=== PATIENT | female | born 1950 | race Caucasian/White ===

== ENCOUNTER → 2016-12-04 | Outpatient (CLI) | payer MEDICARE, OTHER ==
--- NOTE | 2016-12-04 11:25 | Diagnostic Imaging Report ---
Indication: Postmenopausal bleeding. Comparison: None. Discussion: Transabdominal and transvaginal sonographic evaluation of the pelvis was performed. The uterus is normal in echotexture and size measuring 8.1 x 3.4 x 5.3 cm. The endometrium is abnormally thickened and markedly heterogenous with both solid and cystic components. The endometrium measures up to 2.5 cm. There is no significant internal color Doppler blood flow identified within the abnormal endometrium. Findings are nonspecific and could be seen with malignancy, hyperplasia, less likely polyp. Recommend tissue sampling for further evaluation. Neither ovary was visualized, possibly obscured by bowel. No abnormal adnexal mass or fluid. Impression: 1. Abnormally thickened heterogenous endometrium measuring up to 2.5 cm. Malignancy is not excluded by ultrasound. Recommend tissue sampling for further evaluation. Dictated by: Dictated on workstation # [id number]
== END | disposition home or self-care (01) ==
LOC: RAD 10:27
PROVIDERS: ATTEND Internal Medicine
DX: R93.8 Abnormal findings on diagnostic imaging of other specified body structures (principal); N95.0 Postmenopausal bleeding
CPT/HCPCS: 76830; 76856